=== PATIENT | female | born 1995 | race Caucasian/White ===

== ENCOUNTER → 2020-02-04 | Outpatient (REF) | payer BC ==
[~2020-02-04] MED LIST: ALBU17IN2 INH; AMOX200S2; BACTROBAN; CETI10TA; CLINDAMYCIN; NEXI1CAP3 OR; NEXI20CA; PROV90AE; YAZ3TAB2 OR; ZYRT10TA6 OR
[2020-02-04 14:00] LABS: HEMATOCRIT 38.1 % (36.0-47.0); HEMOGLOBIN 12.7 g/dl (12.0-15.5); MEAN CORPUSCULAR HEMOGLOBIN 27.3 pg (27.0-33.0); MEAN CORPUSCULAR HGB CONC 33.3 g/dl (32.0-36.5); MEAN CORPUSCULAR VOLUME 81.9 fl (80.0-96.0); PLATELET COUNT, AUTOMATED 277 10^3/uL (150-450); RED BLOOD COUNT 4.65 10^6/uL (4.00-5.40); WHITE BLOOD COUNT 12.3 10^3/uL (4.0-10.0)
[2020-02-05 08:01] LABS: HIV 1&2 SCREEN CENTAUR NEGATIVE (NEGATIVE)
== END ==
LOC: M PLALAB 10:50
PROVIDERS: ATTEND Advanced Practice Midwife
DX: Z34.01 Encounter for supervision of normal first pregnancy, first trimester (principal); E28.2 Polycystic ovarian syndrome; A49.02 Methicillin resistant Staphylococcus aureus infection, unspecified site

== ENCOUNTER → 2020-03-03 | Outpatient (REF) | payer BC ==
[2020-03-03 20:48] LABS: CHLAMYDIA DNA AMPLIFICATION NEGATIVE (NEGATIVE); GC DNA AMPLIFICATION NEGATIVE (NEGATIVE)
== END ==
LOC: M SFHCWAGY 16:37
PROVIDERS: ATTEND Specialist
DX: Z34.01 Encounter for supervision of normal first pregnancy, first trimester (principal)

== ENCOUNTER 2022-08-17 06:24 | Emergency (ER) | payer BC, OTHER ==
[~2022-08-17] VITALS: Ht 162.6 cm; Wt 97.7 kg
[2022-08-17] MEDS ORDERED: KETOROLAC 30 MG/ML 1ML VIAL IV ONE (09:30)
[2022-08-17] MEDS ORDERED: NS 1,000 ML IV ONE (09:30)
[2022-08-17 10:09] LABS: BASO % 0.3 % (0.0-1.0); EOS # 0.1 10^3/uL (0.0-0.5); EOS % 0.6 % (0.0-3.0); HEMATOCRIT 38.9 % (36.0-47.0); HEMOGLOBIN 12.3 g/dl (12.0-15.5); LYMPH # 1.1 10^3/uL (1.5-5.0); LYMPH % 8.5 % (24.0-44.0); MEAN CORPUSCULAR HEMOGLOBIN 25.3 pg (27.0-33.0); MEAN CORPUSCULAR HGB CONC 31.6 g/dl (32.0-36.5); MONO # 0.7 10^3/uL (0.0-0.8); MONO % 5.2 % (2.0-8.0); NEUTROPHILS # 10.7 10^3/uL (1.5-8.5); NEUTROPHILS % 84.9 % (36.0-66.0); PLATELET COUNT, AUTOMATED 338 10^3/uL (150-450); RED BLOOD COUNT 4.86 10^6/uL (4.00-5.40); WHITE BLOOD COUNT 12.6 10^3/uL (4.0-10.0)
[2022-08-17] MEDS ORDERED: MACR100C43 PO ×2 (10:55→10:56)
[2022-08-17] MEDS ORDERED: PYRI1TAB5 PO (10:58)
[2022-08-17] MEDS ORDERED: METH-1164 PO (10:59)
[2022-08-17] MEDS ORDERED: methocarbamoL 500 MG TAB PO ONE (11:00)
[2022-08-17 11:19] VITALS: BP 142/92
== END 2022-08-17 11:27 | disposition home or self-care (01) ==
LOC: M ED 06:24
DX: S39.012A Strain of muscle, fascia and tendon of lower back, initial encounter (principal); X50.9XXA Other and unspecified overexertion or strenuous movements or postures, initial encounter; N30.00 Acute cystitis without hematuria; R10.2 Pelvic and perineal pain; J45.990 Exercise induced bronchospasm; K21.9 Gastro-esophageal reflux disease without esophagitis; Z79.899 Other long term (current) drug therapy
CPT/HCPCS: 74176; 80047; 81000; 81015; 83605; 84702; 85025; 87086; 96361; 96374; 99284; J1885

== ENCOUNTER → 2022-10-27 | Outpatient (CLI) | payer OTHER ==
[~2022-10-27] MED LIST changes: +MACR100C43 PO; +METH-1164 PO; +PYRI1TAB5 PO
== END ==
LOC: M RAD 13:30
PROVIDERS: ATTEND Physician Assistant
DX: S09.90XA Unspecified injury of head, initial encounter (principal); R11.2 Nausea with vomiting, unspecified

== ENCOUNTER → 2023-09-12 | Outpatient (CLI) | payer OTHER | LOC: M PLALAB 11:38 | PROVIDERS: ATTEND Nurse Practitioner Family | DX: Z80.3 Family history of malignant neoplasm of breast (principal) ==

== ENCOUNTER → 2023-10-10 | Outpatient (REF) | payer OTHER | LOC: M SFHCLERA 11:17 | PROVIDERS: ATTEND Physician Assistant | DX: R05.8 Other specified cough (principal) ==

== ENCOUNTER → 2023-10-19 | Outpatient (CLI) | payer OTHER ==
[2023-10-19 16:01] LABS: BASO # 0.1 10^3/uL (0.0-0.2); BASO % 0.5 % (0.0-1.0); EOS # 0.2 10^3/uL (0.0-0.5); EOS % 2.3 % (0.0-3.0); HEMATOCRIT 40.8 % (36.0-47.0); HEMOGLOBIN 13.7 g/dl (12.0-15.5); LYMPH # 1.4 10^3/uL (1.5-5.0); LYMPH % 15.3 % (24.0-44.0); MEAN CORPUSCULAR HEMOGLOBIN 29.4 pg (27.0-33.0); MEAN CORPUSCULAR HGB CONC 33.6 g/dl (32.0-36.5); MEAN CORPUSCULAR VOLUME 87.6 fl (80.0-96.0); MONO # 0.6 10^3/uL (0.0-0.8); NEUTROPHILS # 7.1 10^3/uL (1.5-8.5); NEUTROPHILS % 75.6 % (36.0-66.0); PLATELET COUNT, AUTOMATED 263 10^3/uL (150-450); RED BLOOD COUNT 4.66 10^6/uL (4.00-5.40); WHITE BLOOD COUNT 9.4 10^3/uL (4.0-10.0)
[2023-10-19 16:36] LABS: FREE T4 1.04 NG/DL (0.89-1.76)
[2023-10-19 16:37] LABS: FERRITIN 5.1 NG/ML (7.3-270.7); THYROID STIMULATING HORMONE 0.923 uIU/ML (0.55-4.78); TOTAL 25(OH) VITAMIN D 45.2 NG/ML (20.0-100.0)
[2023-10-19 16:38] LABS: MAGNESIUM LEVEL 1.8 MG/DL (1.8-2.4)
[2023-10-19 16:39] LABS: PERCENT SATURATION 12.5 % (13.2-45.0)
== END ==
LOC: M PLAIMG 13:50
PROVIDERS: ATTEND Physician Assistant
DX: E55.9 Vitamin D deficiency, unspecified (principal); E28.2 Polycystic ovarian syndrome; R51.9 Headache, unspecified; R63.4 Abnormal weight loss; J45.30 Mild persistent asthma, uncomplicated; I10 Essential (primary) hypertension; R05.8 Other specified cough

== ENCOUNTER → 2023-12-29 | Outpatient (REF) | payer OTHER | LOC: M SFHCLERA 16:57 | PROVIDERS: ATTEND Physician Assistant | DX: K13.70 Unspecified lesions of oral mucosa (principal) ==

== ENCOUNTER → 2024-09-27 | Outpatient (REF) | payer OTHER ==
[2024-09-27 19:26] LABS: BASO % 0.5 % (0.0-1.0); EOS # 0.2 10^3/uL (0.0-0.5); EOS % 1.9 % (0.0-3.0); HEMATOCRIT 43.2 % (36.0-47.0); HEMOGLOBIN 14.5 g/dl (12.0-15.5); IRON (FE) 39 UG/DL (50-170); LYMPH # 1.4 10^3/uL (1.5-5.0); LYMPH % 17.9 % (24.0-44.0); MEAN CORPUSCULAR HEMOGLOBIN 30.5 pg (27.0-33.0); MEAN CORPUSCULAR HGB CONC 33.6 g/dl (32.0-36.5); MEAN CORPUSCULAR VOLUME 90.9 fl (80.0-96.0); MONO # 0.6 10^3/uL (0.0-0.8); NEUTROPHILS # 5.7 10^3/uL (1.5-8.5); NEUTROPHILS % 71.3 % (36.0-66.0); PERCENT SATURATION 12.5 % (13.2-45.0); PLATELET COUNT, AUTOMATED 239 10^3/uL (150-450); RED BLOOD COUNT 4.75 10^6/uL (4.00-5.40); TOTAL IRON BINDING CAPACITY 312 UG/DL (250-425)
[2024-09-27 19:27] LABS: ALBUMIN 3.7 G/DL (3.2-5.2); ALKALINE PHOSPHATASE 74 U/L (35-104); ALT/SGPT 20 U/L (7.0-40); AST/SGOT 13 U/L (<34); BILIRUBIN,TOTAL 0.3 MG/DL (0.3-1.2); BLOOD UREA NITROGEN 11 MG/DL (9-23); CALCIUM LEVEL 9.6 MG/DL (8.5-10.1); CARBON DIOXIDE LEVEL 29 MMOL/L (20-31); CHLORIDE LEVEL 107 MMOL/L (98-107); CREATININE FOR GFR 0.69 MG/DL (0.55-1.30); GLOMERULAR FILTRATION RATE > 60.0 (>60); GLUCOSE, FASTING 74 MG/DL (60-100); POTASSIUM SERUM 4.2 MMOL/L (3.5-5.1); SODIUM LEVEL 143 MMOL/L (136-145)
[2024-09-27 19:28] LABS: FERRITIN 32.9 NG/ML (7.3-270.7); THYROID STIMULATING HORMONE 0.837 uIU/ML (0.55-4.78)
[2024-09-27 19:29] LABS: TOTAL 25(OH) VITAMIN D 49.2 NG/ML (20.0-100.0)
== END ==
LOC: M SFHCLERA 09:34
DX: E28.2 Polycystic ovarian syndrome (principal); D50.9 Iron deficiency anemia, unspecified; I10 Essential (primary) hypertension; E55.9 Vitamin D deficiency, unspecified

== ENCOUNTER → 2025-01-14 | Outpatient (CLI) | payer OTHER ==
[2025-01-14 14:31] LABS: BASO # 0.1 10^3/uL (0.0-0.2); BASO % 0.6 % (0.0-1.0); EOS # 0.2 10^3/uL (0.0-0.5); HEMATOCRIT 42.3 % (36.0-47.0); HEMOGLOBIN 14.2 g/dl (12.0-15.5); LYMPH # 1.7 10^3/uL (1.5-5.0); LYMPH % 18.8 % (24.0-44.0); MEAN CORPUSCULAR HEMOGLOBIN 30.6 pg (27.0-33.0); MEAN CORPUSCULAR HGB CONC 33.6 g/dl (32.0-36.5); MEAN CORPUSCULAR VOLUME 91.2 fl (80.0-96.0); MONO # 0.7 10^3/uL (0.0-0.8); NEUTROPHILS # 6.3 10^3/uL (1.5-8.5); NEUTROPHILS % 69.9 % (36.0-66.0); PLATELET COUNT, AUTOMATED 271 10^3/uL (150-450); RED BLOOD COUNT 4.64 10^6/uL (4.00-5.40)
[2025-01-14 14:39] LABS: PROLACTIN 3.99 NG/ML
[2025-01-14 14:40] LABS: BLOOD UREA NITROGEN 12 MG/DL (9-23); CALCIUM LEVEL 9.5 MG/DL (8.5-10.1); CARBON DIOXIDE LEVEL 32 MMOL/L (20-31); CHLORIDE LEVEL 105 MMOL/L (98-107); CREATININE FOR GFR 0.66 MG/DL (0.55-1.30); GLOMERULAR FILTRATION RATE > 90.0 (>60); GLUCOSE, FASTING 86 MG/DL (60-100); POTASSIUM SERUM 4.7 MMOL/L (3.5-5.1); SODIUM LEVEL 142 MMOL/L (136-145)
[2025-01-15 15:32] LABS: ANGIOTENSIN 1 CONVERTING ENZYM 35 U/L (9-67)
== END ==
LOC: M PLALAB 10:27
PROVIDERS: ATTEND Surgery
DX: N61.1 Abscess of the breast and nipple (principal)

== ENCOUNTER → 2025-05-30 | Outpatient (CLI) | payer OTHER ==
[~2025-05-30] MED LIST changes: +ALPR0.5T3 PO; +AMOX500T2; +AMPH1TAB2 PO; +ATOM60CA7 PO; +BACTDSTA; +DULO1CAP6 PO; +LAMO200T3 PO; +LAMO250T PO; +LURA80TA PO; +OXYC-517 PO; +QUET50TA4 PO; +SPIR-10 PO; +VITA200016 PO
[2025-05-30 11:23] LABS: BASO # 0.0 10^3/uL (0.0-0.2); BASO % 0.3 % (0.0-1.0); EOS # 0.1 10^3/uL (0.0-0.5); EOS % 1.3 % (0.0-3.0); LYMPH # 1.5 10^3/uL (1.5-5.0); LYMPH % 15.2 % (24.0-44.0); MONO # 0.8 10^3/uL (0.0-0.8); MONO % 7.7 % (2.0-8.0); NEUTROPHILS # 7.4 10^3/uL (1.5-8.5); NEUTROPHILS % 75.1 % (36.0-66.0); PLATELET COUNT, AUTOMATED 272 10^3/uL (150-450)
[2025-05-30 11:45] LABS: CALCIUM LEVEL 9.4 MG/DL (8.5-10.1); CARBON DIOXIDE LEVEL 30 MMOL/L (20-31); CHLORIDE LEVEL 104 MMOL/L (98-107); CREATININE FOR GFR 0.77 MG/DL (0.55-1.30); GLOMERULAR FILTRATION RATE > 90.0 (>60); HCG, SERUM QUALITATIVE NEGATIVE (NEGATIVE); POTASSIUM SERUM 4.4 MMOL/L (3.5-5.1); SODIUM LEVEL 140 MMOL/L (136-145)
== END ==
LOC: M PLALAB 08:42
PROVIDERS: ATTEND Surgery
DX: Z01.812 Encounter for preprocedural laboratory examination (principal)

== ENCOUNTER 2025-06-12 06:08 | Day surgery (SDC) | payer OTHER ==
[~2025-06-12] VITALS: Ht 162.6 cm; Wt 83.5 kg
[~2025-06-12 06:08] MED LIST changes: +ceFAZolin SOD 2 GM IV ONCE IV ONE
[2025-06-12] MEDS ORDERED: LIDOCAINE 2% 100 MG/5 ML SDV (FOR ANES.) As Ordered ONE (06:23)
[2025-06-12] MEDS ORDERED: GLYCOPYRROLATE INJ 0.2 MG/ML 2 ML VIAL As Ordered ONE (06:23)
[2025-06-12] MEDS ORDERED: KETOROLAC 30 MG/ML 1 ML VIAL As Ordered ONE (06:24)
[2025-06-12] MEDS ORDERED: dexAMETHasone 4 MG/ML 1 ML VIAL As Ordered ONE (06:24)
[2025-06-12] MEDS ORDERED: ONDANSETRON 4MG 2ML VIAL As Ordered ONE (06:24)
[2025-06-12] MEDS ORDERED: MIDAZOLAM INJ 2 MG/2 ML VIAL As Ordered ONE (06:25)
[2025-06-12] MEDS ORDERED: ACETAMINOPHEN 1000MG/100ML IV BAG As Ordered ONE (06:25)
[2025-06-12] MEDS ORDERED: LR 1,000 ML IV SCH (07:00)
[2025-06-12] MEDS: ceFAZolin SOD 2 GM IV ONCE IV ONE (07:37)
[2025-06-12] MEDS ORDERED: HYDROmorphone HCL 2 MG/ML 1 ML VIAL As Ordered ONE (07:44)
[2025-06-12] MEDS ORDERED: MORPHINE 4 MG/ML 1 ML VIAL IV PRN (08:20)
[2025-06-12] MEDS ORDERED: ONDANSETRON 4MG 2ML VIAL IV PRN (08:20)
[2025-06-12] MEDS ORDERED: OXYC-517 PO (08:28)
[2025-06-12 09:35] VITALS: BP 130/90; TEMP 96.7; O2SAT 99
== END 2025-06-12 09:50 | disposition home or self-care (01) ==
LOC: M SDC 06:08
PROVIDERS: ATTEND Surgery
DX: N60.02 Solitary cyst of left breast (principal); L72.0 Epidermal cyst; R06.83 Snoring; Z79.899 Other long term (current) drug therapy; F17.290 Nicotine dependence, other tobacco product, uncomplicated
CPT/HCPCS: 10060; 81025; 88305; J0131; J0665; J0688; J1100; J1171; J1596; J1885; J2250; J2405; J2765; J3010

== ENCOUNTER → 2025-08-04 | Outpatient (CLI) | payer OTHER ==
[~2025-08-04] MED LIST changes: -BACTDSTA; +SULF-8; -ceFAZolin SOD 2 GM IV ONCE IV ONE
== END ==
LOC: M WHC 14:11
PROVIDERS: ATTEND Surgery
DX: N61.1 Abscess of the breast and nipple (principal)